=== PATIENT | female | born 1990 | race African-American/Black ===

== ENCOUNTER 2020-04-24 15:22 | Emergency (ER) | payer OTHER ==
[2020-04-24 15:40] VITALS: BP 111/69; PULSE 66; TEMP 98.5; BMI 23.1
[2020-04-24] MEDS ORDERED: FLUORESCEIN NA 1 EA STRIP OU ONE (16:12)
[2020-04-24] MEDS ORDERED: TETRACAINE 0.5% OPHTH SOLN 2 ML BOTTLE ONE (16:12)
[2020-04-24] MEDS ORDERED: TETRACAINE 0.5% HCL 0.6ML DROPPER.BOTTLE OU ONE (16:12)
[2020-04-24 17:07] LABS: POTASSIUM 4.2 mmol/L (3.5-5.1)
[2020-04-24 17:09] LABS: CALCIUM 9.7 mg/dL (8.5-10.1)
[2020-04-24 17:10] LABS: ALBUMIN 4.5 g/dl (3.4-5.0)
[2020-04-24 17:11] LABS: BLOOD UREA NITROGEN 8.4 mg/dL (7-18)
[2020-04-24 17:12] LABS: URIC ACID 3.9 mg/dL (2.6-7.2)
[2020-04-24 17:13] LABS: CREATININE 0.8 mg/dL (0.55-1.3)
[2020-04-24 17:14] LABS: PHOSPHOROUS 3.4 mg/dL (2.5-4.9)
[2020-04-24 17:15] LABS: TOT PROT 8.7 g/dl (6.4-8.2)
[2020-04-24 17:16] LABS: BILIRUBIN,TOTAL 0.8 mg/dL (0.2-1)
[2020-04-24 17:32] LABS: BASO % 1.2 % (0-2.0); EOS % 1.5 % (0-4.5); HEMATOCRIT 41.3 % (32.4-45.2); HEMOGLOBIN 13.6 GM/dL (10.7-15.3); LYMPH % 45.9 % (8-40); MCH 31.7 pg (25.7-33.7); MCHC 32.9 g/dl (32.0-36.0); MEAN CELL VOLUME 96.4 fl (80-96); MEAN PLT VOLUME 9.6 fl (7.5-11.1); NEUT % 45.4 % (42.8-82.8); PLATELET COUNT 205 K/MM3 (134-434); RBC 4.29 M/mm3 (3.60-5.2); RDW 13.8 % (11.6-15.6); WHITE BLOOD COUNT 5.4 K/mm3 (4.0-10.0)
[2020-04-24 18:04] LABS: HIV INTERPRETATION NEGATIVE (NEGATIVE)
== END 2020-04-24 17:11 | disposition home or self-care (01) ==
LOC: JERFT 15:22
DX: T26.62XA Corrosion of cornea and conjunctival sac, left eye, initial encounter (principal); Z77.21 Contact with and (suspected) exposure to potentially hazardous body fluids
CPT/HCPCS: 36415; 80053; 82465; 82977; 83615; 84100; 84478; 84550; 85025; 86317; 86704; 86706; 86803; 87340; 87389; 99284-25